=== PATIENT | male | born 1960 | race Caucasian/White ===

== ENCOUNTER 2016-11-08 19:14 | Emergency (ER) | payer OTHER ==
[~2016-11-08] VITALS: Ht 180.3 cm; Wt 88.6 kg
[2016-11-08 19:16] VITALS: BP 132/73
[2016-11-08] MEDS ORDERED: LIDOCAINE 1%, 20ML SQ ONE (19:30)
[2016-11-08] MEDS ORDERED: LIDOCAINE 1%, 20ML ONE (20:18)
[2016-11-08] MEDS ORDERED: LIDOCAINE/PF 1%-EPI 1:200K, 30 ML INFIL ONE (20:30)
[2016-11-08] MEDS ORDERED: LIDOCAINE 1%-EPI 1:100K, 20ML SQ ONE (20:30)
== END 2016-11-08 21:42 | disposition home or self-care (01) ==
LOC: ED 21:36
DX: S91.312A Laceration without foreign body, left foot, initial encounter (principal); X58.XXXA Exposure to other specified factors, initial encounter; Y93.89 Activity, other specified; Y92.009 Unspecified place in unspecified non-institutional (private) residence as the place of occurrence of the external cause; Y99.8 Other external cause status
CPT/HCPCS: 12001